=== PATIENT | male | born 1955 | race Caucasian/White ===

== ENCOUNTER → 2018-03-16 | Outpatient (CLI) | payer MEDICARE ==
[2018-03-16 11:24] LABS: ALBUMIN 3.8 g/dL (3.4-5.0); CHLORIDE 106 mmol/L (98-107)
[2018-03-16 11:31] LABS: ALANINE AMINOTRANSFERASE 35 U/L (12-78); ALKALINE PHOSPHATASE 73 U/L (45-117); ANION GAP 7 mmol/L (5-15); BILIRUBIN,TOTAL 0.8 mg/dL (0.2-1.0); CALCIUM 8.3 mg/dL (8.5-10.1); CHOLESTEROL, TOTAL 187 mg/dL (140-239); CREATININE 1.08 mg/dL (0.7-1.3); HDL CHOL % 17 % (26-37); HDL CHOLESTEROL (DIRECT) 31 mg/dL (40-60); TOTAL PROTEIN 7.7 g/dL (6.4-8.2); TRIGLYCERIDES 909 mg/dL (50-200)
== END | disposition home or self-care (01) ==
LOC: CFH 09:44
PROVIDERS: ATTEND Internal Medicine Cardiovascular Disease
DX: I10 Essential (primary) hypertension (principal); E78.5 Hyperlipidemia, unspecified; I25.728 Atherosclerosis of autologous artery coronary artery bypass graft(s) with other forms of angina pectoris; I73.9 Peripheral vascular disease, unspecified
CPT/HCPCS: 36415; 80053; 80061

== ENCOUNTER → 2018-03-18 | Outpatient (CLI) | payer MEDICARE, OTHER ==
[~2018-03-18] MED LIST: REGADENOSON 0.4 MG/5 ML SYRINGE ONE
== END | disposition home or self-care (01) ==
LOC: CFH 08:34
PROVIDERS: ATTEND Internal Medicine Cardiovascular Disease
DX: I21.19 ST elevation (STEMI) myocardial infarction involving other coronary artery of inferior wall (principal); R29.898 Other symptoms and signs involving the musculoskeletal system; I10 Essential (primary) hypertension
CPT/HCPCS: 78452; 93017; A9502; J2785

== ENCOUNTER → 2018-03-24 | Outpatient (CLI) | payer MEDICARE, OTHER | END | disposition home or self-care (01) | LOC: CVU 12:41 | PROVIDERS: ATTEND Internal Medicine Cardiovascular Disease | DX: I65.23 Occlusion and stenosis of bilateral carotid arteries (principal); I10 Essential (primary) hypertension; I25.728 Atherosclerosis of autologous artery coronary artery bypass graft(s) with other forms of angina pectoris; E78.00 Pure hypercholesterolemia, unspecified; I73.9 Peripheral vascular disease, unspecified | CPT/HCPCS: 93880; 93922 ==

== ENCOUNTER 2020-09-12 10:05 | Inpatient (IN) | payer MEDICARE ==
[~2020-09-12] VITALS: Ht 162.6 cm; Wt 75.3 kg
--- NOTE | 2020-09-12 10:33 | NUR ---
THIS IS A A 65 YEAR OLD MALE WHO C/O OF CHEST PAIN ON AND OFF X ONE WEEK. PT STATES PAIN RADIATED TOWARD BOTH ARM PITS, 7/10 PAIN AT TIMES. 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 PT HAS A HX OF OPEN HEART SURGERY IN 2011. IV STARTED AND LABS DRAWN, DISCUSSED PLAN OF CARE, CALL LIGHT IN PLACE.
[2020-09-12] MEDS ORDERED: AMLO-150 PO (10:37)
[2020-09-12] MEDS ORDERED: CLOP75TA PO (10:38)
[2020-09-12] MEDS ORDERED: ASPI-963 PO (10:38)
[2020-09-12] MEDS ORDERED: EZET10TA70 PO (10:38)
[2020-09-12] MEDS ORDERED: METO-93 PO (10:39)
[2020-09-12] MEDS ORDERED: LISI-167 PO (10:39)
[2020-09-12] MEDS ORDERED: FENO145T32 PO (10:39)
[2020-09-12] MEDS ORDERED: BEMP180T MT (10:41)
[2020-09-12] MEDS ORDERED: NITR0.6T4 SL (10:41)
[2020-09-12] MEDS ORDERED: METH750T87 PO (10:42)
[2020-09-12] MEDS ORDERED: PRED20TA PO (10:42)
--- NOTE | 2020-09-12 10:46 | NUR ---
BEDSIDE REPORT TO CATIA, PLAN OF CARE DISCUSSED.
--- NOTE | 2020-09-12 10:51 | NUR ---
RECEIVED REPORT FROM BRAVO CUNNINGHAM. ASSUMING CARE AT THIS TIME. PT RESTING COMFORTABLY ON GURNEY. NADN. PT CONNECTED TO MONITORING. AT BEDSIDE.
[2020-09-12 11:11] LABS: BASOPHILS % (AUTO) 0 % (0-1); EOSINOPHILS % (AUTO) 0 % (1-7); LYMPHOCYTES % (AUTO) 17 % (22-44); MD NO; MEAN CORPUSCULAR HEMOGLOBIN 29.7 pg (27.5-34.5); MEAN CORPUSCULAR HGB CONC 33.9 g/dL (33.2-36.2); MEAN PLATELET VOLUME 8.7 fL (7.4-10.4); MONOCYTES % (AUTO) 8 % (2-9); NEUTROPHILS % (AUTO) 75 % (42-75); PLATELET COUNT 201 x10^3/uL (130-400); RED BLOOD COUNT 4.99 x10^6/uL (4.38-5.82); RED CELL DISTRIBUTION WIDTH 14.6 % (9.4-14.8)
[2020-09-12 11:18] LABS: ALANINE AMINOTRANSFERASE 31 U/L (12-78); ALBUMIN 4.4 g/dL (3.4-5.0); ANION GAP 7 mmol/L (5-15); CALCIUM 8.8 mg/dL (8.5-10.1); CHLORIDE 107 mmol/L (98-107); CREATININE 1.26 mg/dL (0.7-1.3)
[2020-09-12 11:23] LABS: ALKALINE PHOSPHATASE 65 U/L (45-117); TOTAL PROTEIN 8.1 g/dL (6.4-8.2); TROPONIN I < 0.015 ng/mL (0.000-0.045)
--- NOTE | 2020-09-12 11:25 | NUR ---
ALL RESULTS ARE BACK AT THIS TIME. CHART UP FOR RECHECK.
[2020-09-12] MEDS ORDERED: SODIUM CHLORIDE FLUSH 10ML SYR IVF PRN (12:00)
--- NOTE | 2020-09-12 12:13 | NUR ---
REPORT GIVEN TO PORTILLO CUNNINGHAM. PT RTG TO ROOM [id number]
[2020-09-12] MEDS ORDERED: hydrALAzine 20 MG/ML, 1ML IVPush PRN (12:30)
[2020-09-12] MEDS ORDERED: MELATONIN 5 MG TABLET PO PRN (12:30)
[2020-09-12] MEDS ORDERED: ONDANSETRON 2MG/ML, 2ML IVPush PRN (12:30)
[2020-09-12] MEDS ORDERED: ACETAMINOPHEN 325 MG TABLET PO PRN (12:30)
[2020-09-12] MEDS ORDERED: DOCUSATE 100 MG CAPSULE PO PRN (12:30)
[2020-09-12 12:37] VITALS: BP 131/79
[2020-09-12] MEDS ORDERED: HEPARIN 25,000 UNITS/250ML PMX 250 ML IV PRN (13:00)
[2020-09-12] MEDS ORDERED: HEPARIN 5,000 UNITS/ML, 1ML IV PRN (13:00)
[2020-09-12] MEDS ORDERED: HEPARIN 5,000 UNITS/ML, 1ML IV ONE (13:00)
[2020-09-12 13:24] LABS: FREE T4 (FREE THYROXINE) 1.04 ng/dL (0.76-1.46); TROPONIN I < 0.015 ng/mL (0.000-0.045)
[2020-09-12 18:41] LABS: TROPONIN I < 0.015 ng/mL (0.000-0.045)
[2020-09-12 19:23] VITALS: BP 113/68
[2020-09-12] MEDS: K-PHOS NEUTRAL 250MG TAB PO SCH (21:40)
[2020-09-12] MEDS: EZETIMIBE 10 MG TABLET PO SCH (21:40)
[2020-09-12] MEDS: FENOFIBRATE 145 MG TABLET PO SCH (21:40)
[2020-09-12] MEDS: SODIUM CHLORIDE FLUSH 10ML SYR IVF SCH (21:41)
[2020-09-12] MEDS ORDERED: METHOCARBAMOL 750 MG TABLET PO PRN (22:30)
[2020-09-13 02:13] VITALS: BP 115/70
[2020-09-13 04:43] LABS: BASOPHILS % (AUTO) 1 % (0-1); EOSINOPHILS % (AUTO) 0 % (1-7); LYMPHOCYTES % (AUTO) 26 % (22-44); MEAN CORPUSCULAR HEMOGLOBIN 29.9 pg (27.5-34.5); MEAN CORPUSCULAR HGB CONC 33.5 g/dL (33.2-36.2); MEAN PLATELET VOLUME 8.9 fL (7.4-10.4); MONOCYTES % (AUTO) 8 % (2-9); NEUTROPHILS % (AUTO) 65 % (42-75); PLATELET COUNT 198 x10^3/uL (130-400); RED BLOOD COUNT 4.79 x10^6/uL (4.38-5.82); RED CELL DISTRIBUTION WIDTH 14.6 % (9.4-14.8)
[2020-09-13 04:47] LABS: MD NO
[2020-09-13 04:56] LABS: ANION GAP 4 mmol/L (5-15); CALCIUM 8.7 mg/dL (8.5-10.1); CHLORIDE 108 mmol/L (98-107)
[2020-09-13 05:02] LABS: CHOL/HDL RATIO 6.6; CHOLESTEROL, TOTAL 238 mg/dL (140-239); CREATININE 1.18 mg/dL (0.7-1.3); HDL CHOL % 15 % (26-37); HDL CHOLESTEROL (DIRECT) 36 mg/dL (40-60); LDL CHOLESTEROL,CALCULATED 167 mg/dL (54-169); LDL/HDL RATIO 4.6 (0.5-3.0); TRIGLYCERIDES 175 mg/dL (50-200); VLDL CHOLESTEROL 35 mg/dL (0-25)
[2020-09-13] MEDS: METHOCARBAMOL 750 MG TABLET PO SCH (08:25)
[2020-09-13] MEDS: METOPROLOL SUCCINATE 50 MG TAB.ER.24H PO SCH (08:25)
[2020-09-13] MEDS: LISINOPRIL 10 MG TABLET PO SCH (08:25)
[2020-09-13] MEDS: ASPIRIN 81 MG TABLET EC PO SCH (08:25)
[2020-09-13] MEDS: AMLODIPINE 5 MG TABLET PO SCH (08:25)
[2020-09-13] MEDS: K-PHOS NEUTRAL 250MG TAB PO SCH ×2 (08:25→20:09)
[2020-09-13] MEDS: SODIUM CHLORIDE FLUSH 10ML SYR IVF SCH ×2 (08:25→20:09)
[2020-09-13] MEDS: CLOPIDOGREL 75 MG TABLET PO SCH (08:25)
[2020-09-13 08:28] VITALS: BP 116/75
[2020-09-13] MEDS ORDERED: EZETIMIBE 10 MG TABLET PO SCH (09:00)
[2020-09-13] MEDS ORDERED: FENOFIBRATE 145 MG TABLET PO SCH (09:00)
[2020-09-13] MEDS ORDERED: MIDAZOLAM 1 MG/ML, 5ML ONE (10:42)
[2020-09-13] MEDS ORDERED: TICAGRELOR 90 MG TABLET ONE (10:42)
[2020-09-13] MEDS ORDERED: FENTANYL PF 100 MCG/2ML ONE (10:42)
[2020-09-13] MEDS ORDERED: LIDOCAINE-MPF 1%, 5ML ONE (10:43)
[2020-09-13] MEDS ORDERED: BIVALIRUDIN 250 MG ONE (10:43)
[2020-09-13] MEDS ORDERED: VERAPAMIL 2.5 MG/ML, 2ML ONE (10:43)
[2020-09-13] MEDS ORDERED: HEPARIN 1,000 UNITS/ML, 10ML ONE (10:43)
[2020-09-13] MEDS ORDERED: NITROGLYCERIN 5 MG/ML, 10ML ONE (10:45)
[2020-09-13] MEDS ORDERED: LIDOCAINE 2%, 20ML ONE (11:05)
[2020-09-13] MEDS: ISOSORBIDE MONONITRATE ER 30 MG TABLET PO SCH (13:21)
[2020-09-13 16:14] VITALS: BP 103/66
[2020-09-13 19:39] VITALS: BP 100/58
[2020-09-13] MEDS: FENOFIBRATE 145 MG TABLET PO SCH (20:09)
[2020-09-13] MEDS: EZETIMIBE 10 MG TABLET PO SCH (20:09)
[2020-09-14 01:09] VITALS: BP 100/60
[2020-09-14] MEDS ORDERED: MAALOX/HYOSCYAMINE/LIDOCAINE 45 ML BTL PO PRN (01:30)
[2020-09-14] MEDS ORDERED: ISOS30TA8 PO (07:40)
[2020-09-14 08:08] VITALS: BP 108/61
[2020-09-14] MEDS: CLOPIDOGREL 75 MG TABLET PO SCH (08:37)
[2020-09-14] MEDS: METHOCARBAMOL 750 MG TABLET PO SCH (08:37)
[2020-09-14] MEDS: K-PHOS NEUTRAL 250MG TAB PO SCH (08:37)
[2020-09-14] MEDS: SODIUM CHLORIDE FLUSH 10ML SYR IVF SCH (08:37)
[2020-09-14] MEDS: LISINOPRIL 10 MG TABLET PO SCH (08:38)
[2020-09-14] MEDS: ISOSORBIDE MONONITRATE ER 30 MG TABLET PO SCH (08:38)
[2020-09-14] MEDS: METOPROLOL SUCCINATE 50 MG TAB.ER.24H PO SCH (08:38)
[2020-09-14] MEDS: AMLODIPINE 5 MG TABLET PO SCH (08:38)
[2020-09-14] MEDS: ASPIRIN 81 MG TABLET EC PO SCH (08:38)
== END 2020-09-14 09:38 | disposition home or self-care (01) | DRG 287 ==
LOC: ED 11:56 → 5SO 12:33 → DCLOUNGE 09-14 09:30
PROVIDERS: ADMIT Family Medicine; ATTEND Hospitalist
PROC: B2111ZZ Fluoroscopy of Multiple Coronary Arteries using Low Osmolar Contrast (ICD-10-PCS; principal; 2020-09-13)
PROC: B2181ZZ Fluoroscopy of Left Internal Mammary Bypass Graft using Low Osmolar Contrast (ICD-10-PCS; 2020-09-13)
PROC: B2121ZZ Fluoroscopy of Single Coronary Artery Bypass Graft using Low Osmolar Contrast (ICD-10-PCS; 2020-09-13)
PROC: 4A023N7 Measurement of Cardiac Sampling and Pressure, Left Heart, Percutaneous Approach (ICD-10-PCS; 2020-09-13)
DX: I25.110 Atherosclerotic heart disease of native coronary artery with unstable angina pectoris (principal); I50.30 Unspecified diastolic (congestive) heart failure; I13.0 Hypertensive heart and chronic kidney disease with heart failure and stage 1 through stage 4 chronic kidney disease, or unspecified chronic kidney disease; I25.810 Atherosclerosis of coronary artery bypass graft(s) without angina pectoris; I73.9 Peripheral vascular disease, unspecified; I65.22 Occlusion and stenosis of left carotid artery; D72.829 Elevated white blood cell count, unspecified; T38.0X5A Adverse effect of glucocorticoids and synthetic analogues, initial encounter; E78.5 Hyperlipidemia, unspecified; I25.82 Chronic total occlusion of coronary artery; M54.30 Sciatica, unspecified side; N18.2 Chronic kidney disease, stage 2 (mild); I25.2 Old myocardial infarction; Z82.49 Family history of ischemic heart disease and other diseases of the circulatory system; Z87.891 Personal history of nicotine dependence; Z90.49 Acquired absence of other specified parts of digestive tract; Y92.89 Other specified places as the place of occurrence of the external cause
CPT/HCPCS: 36415; 71045; 80048; 80053; 80061; 83036; 83735; 84100; 84439; 84443; 84484; 85025; 85520; 93005; 93459; 99156; 99157; 99285; C1760; C1769; C1894; C8929; G0378; J0583; J1644; J2250; J3010; Q9957; Q9967